=== PATIENT | female | born 1965 | race Caucasian/White ===

== ENCOUNTER 2023-02-18 16:25 | Observation (INO) ==
[2023-02-18 17:35] LABS: BASOPHILS # (AUTO) 0.1 K/uL (0-0.2); BASOPHILS % (AUTO) 1.3 % (0.0-3.0); EOSINOPHILS # (AUTO) 0.2 K/ul (0.0-0.7); EOSINOPHILS % (AUTO) 2.9 % (0.0-7.0); HEMATOCRIT 30.7 % (37.0-47.0); HEMOGLOBIN 9.9 g/dl (12.0-16.0); IMMATURE GRANULOCYTE % (AUTO) 0.1 % (0.0-5.0); LYMPHOCYTES # (AUTO) 2.3 K/uL (0.60-3.4); LYMPHOCYTES % (AUTO) 32.7 (10.0-50.0); MEAN CORPUSCULAR HGB CONC 32.2 (31.8-35.4); MEAN CORPUSCULAR VOLUME 99.4 fl (81.0-99.0); MONOCYTES # (AUTO) 0.6 K/uL (0.4-2.0); NEUTROPHILS # (AUTO) 3.8 K/ul (2.0-6.9); PLATELET COUNT 214 10^3/uL (140-440); RDW COEFFICIENT OF VARIATION 13.6 % (11.6-14.8); RED BLOOD COUNT 3.09 10^6/ul (4.20-5.40); WHITE BLOOD COUNT 6.97 K/ul (4.6-10.2)
[2023-02-18 17:43] LABS: ALANINE AMINOTRANSFERASE 15.5 U/L (0-35); ALBUMIN 2.99 g/dL (3.5-5.0); ALKALINE PHOSPHATASE 79.3 U/L (53-141); ASPARTATE AMINO TRANSFERASE 23.2 U/L (14-36); BILIRUBIN,TOTAL 0.22 mg/dL (0.2-1.3); BLOOD UREA NITROGEN 7.1 mg/dL (7-17); CALCIUM 7.93 mg/dL (8.4-10.2); CARBON DIOXIDE 28.4 mmol/L (22-30.0); CHLORIDE 105.1 mmol/L (98-107); CREATININE 0.74 mg/dL (0.60-1.30); GLUCOSE 84.5 mg/dL (74-106); POTASSIUM 3.44 mmol/L (3.5-5.1); SODIUM 136.1 mmol/L (134.5-145); TOTAL PROTEIN 5.75 g/dL (6.3-8.2)
--- NOTE | 2023-02-18 17:55 | CT ---
EXAM: CHEST CT WITH INTRAVENOUS CONTRAST HISTORY: Chest pain TECHNIQUE: CT acquisition of the chest from the thoracic inlet to the upper abdomen following IV cont rast administration. 2-D coronal and sagittal reformatted images were obtained from the axial source images. IV Contrast: Administered. CT Dose Reduction Techniques Performed: Yes. COMPARISON: None. FINDINGS: Lines, Tubes, Devices: None. Lung Parenchyma and Airways: Central airways are patent without endobronchial lesion. No focal conso lidation or interstitial disease. Centrilobular emphysema. No suspicious pulmonary nodule. Pleural Space: No pleural effusion or thickening. No pneumothorax. Thoracic Inlet, Mediastinum, and Nayeli: Thyroid gland is normal. No lymphadenopathy. Heart, Vessels, and Pericardium: The main pulmonary artery is normal caliber. There is no central pu lmonary embolism. The thoracic aorta is not dilated. No aortic dissection. Calcification in the ao rta consistent with atherosclerosis. The heart chambers are not enlarged. There is no pericardial e ffusion or thickening. Bones and Soft Tissues: There is no fracture, lytic lesion, or blastic lesion. Chest wall soft tissu es are unremarkable. Upper Abdomen: The visualized portions of the liver, spleen, and adrenals are normal. IMPRESSION: 1. Centrilobular emphysema. 2. Atherosclerosis. 3. No aortic dissection. No central pulmonary artery embolism. 4. Otherwise unremarkable contrast enhanced CT scan of the chest. All CT scans are performed using dose optimization techniques as appropriate to the performed exam an d include at least one of the following: Automated exposure control, adjustment of the mA and/or kV according t o size, and the use of iterative reconstruction technique.
--- NOTE | 2023-02-18 17:59 | CT ---
EXAM: CT OF THE ABDOMEN AND PELVIS WITH IV CONTRAST. HISTORY: Abdominal pain. Femoral access 2 days ago for endarterectomy. PROCEDURE: After the intravenous injection of contrast contiguous axial CT images of the abdomen and pelvis were obtained with coronal and sagittal reformats. All CT scans are performed using dose opt imization techniques as appropriate to a performed exam including the following: Automated exposure c ontrol, Adjustment of the mA and/or kV according to patient size, Use of iterative reconstruction sarkis hnique. FINDINGS: The liver is normal in appearance. There are gallstones in the gallbladder. The gallbladd er is within normal limits in size. There is a 0.9 cm complex low attenuation lesion in the spleen. The pancreas and adrenal glands are normal in appearance. There are bilateral renal cysts. The abd ominal aorta is within normal limits in size. There extensive atherosclerotic calcifications in the abdominal aorta and bilateral iliac arteries. There is occlusion of the bilateral iliac arteries wit h collateral reconstitution at the level of the bilateral common femoral arteries. No hematoma. The visualized loops of bowel and appendix are normal in appearance. No free fluid or free air in the a bdomen or pelvis. The bladder is adequately filled. There is diffuse bladder wall thickening measur ing up to 0.8 cm. The uterus is surgically absent. There are degenerative changes in the spine. Impression: Occlusion of the bilateral iliac arteries with collateral reconstitution at the level of the bilateral common femoral arteries. Bladder wall thickening as described, suspicious for cystitis. The differential diagnosis includes n eoplasm. Cholelithiasis as described. Atherosclerotic vascular disease as described. 0.9 cm complex splenic lesion as described. Recommend non-emergent ultrasound for further evaluation . Bilateral renal cysts. Hysterectomy. Critical result: I personally discussed Impression #1 with the patient's ER physician (Dr. Alonso) on 02/18/2023 at 5:[address] scans are performed using dose optimization techniques as appropriate to the performed exam an d include at least one of the following: Automated exposure control, adjustment of the mA and/or kV according t o size, and the use of iterative reconstruction technique.
--- NOTE | 2023-02-18 18:00 | CT ---
EXAM: CTA HEAD WITH AND WITHOUT CONTRAST TECHNIQUE: CT Angiography of the head performed without and with IV contrast. 2-D and 3-D reconstru ctions were made. HISTORY: Severe headache. Endarterectomy 2 days ago. COMPARISON: CTA head 01/29/2023. FINDINGS: No acute intracranial hemorrhage. No CT evidence of acute ischemic infarction. Old infarcts with encephalomalacia in the frontal lobes bilaterally. Unchanged diminutive enhancement of the right internal carotid artery and complete nonenhancement of the left internal carotid artery. Reconstitution of the anterior circulation via collaterals. Widel y patent vertebral arteries and basilar artery. No acute large vessel occlusion demonstrated. No aneurysm or high flow vascular lesion identified. IMPRESSION: Redemonstrated diminutive enhancement of the right internal carotid artery and nonenhancement of the left internal carotid artery. Reconstitution of the anterior circulation via collaterals. No acute large vessel occlusion. No acute intracranial abnormality. All CT scans are performed using dose optimization techniques as appropriate to the performed exam an d include at least one of the following: Automated exposure control, adjustment of the mA and/or kV according t o size, and the use of iterative reconstruction technique.
--- NOTE | 2023-02-18 18:02 | CT ---
EXAM: CTA NECK WITHOUT AND WITH IV CONTRAST HISTORY: Carotid enterectomy 2 days ago, now worse headache COMPARISON: 01/29/2023 CTA TECHNIQUE: Axial CTA of the neck without and with with IV contrast. Sagittal, coronal and 3-D reform ats were obtained. FINDINGS: Right side: Mild proximal CCA atherosclerotic plaque is seen with minimal stenosis. There is reident ification of a prominent calcified atherosclerotic plaque at the CCA bifurcation and proximal ICA. O cclusion of the occlusion of the proximal 4 cm of the cervical ICA is again seen. Trace patency of t he cervical ICA is identified beginning at the level of C2-3 and extending through the more superior aspect of the cervical ICA. The cervical vertebral artery is patent, with mild stenosis proximally d ue to calcified atherosclerotic plaque. No CT evidence of interval carotid endarterectomy. Left side: Mild multifocal CCA stenosis is identified. There is prominent calcified atherosclerotic plaque of the CCA bifurcation and proximal ICA. Occlusion of the entire cervical ICA is again seen. There is a least moderate stenosis of the origin of the vertebral artery which is normal in course an d caliber more distally. No CT evidence of interval carotid endarterectomy. Nonvascular findings: Emphysematous changes are identified. Degenerative changes of the spine are se en. 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 Trace patency noted beginning at the level of C2 and extending more superiorly. Reidentification of complete occlusion of the left cervical ICA. Mild right and at least moderate left proximal vertebral artery stenosis. Similar findings compared to the prior exam. All CT scans are performed using dose optimization techniques as appropriate to the performed exam an d include at least one of the following: Automated exposure control, adjustment of the mA and/or kV according t o size, and the use of iterative reconstruction technique.
[2023-02-18] MEDS ORDERED: SODIUM CHLORIDE 1,000 ML IV STA (18:36)
[2023-02-18] MEDS ORDERED: REGLAN IVP ONE (18:37)
[2023-02-18] MEDS ORDERED: BENADRYL IVP ONE (18:37)
[2023-02-18] MEDS ORDERED: ACETAMINOPHEN 1,000 MG/100 ML BAG IV ONE (19:24)
[2023-02-18 20:00] LABS: BILIRUBIN,URINE Negative (NEGATIVE); CLARITY,URINE Slightly (CLEAR); COLOR,URINE Yellow (YELLOW); GLUCOSE, URINE (UA) Negative (NEGATIVE); KETONES,URINE Negative (NEGATIVE); LEUKOCYTE ESTERASE ,URINE 1+ (NEGATIVE); NITRITE,URINE Negative (NEGATIVE); PH,URINE 5.5 (5-9); PROTEIN,URINE Negative (NEGATIVE); URINE, BLOOD Trace-intact (NEGATIVE); UROBILINOGEN,URINE 0.2 (0.2)
[2023-02-18 20:02] LABS: BACTERIA,URINE 1+ (NOT PRESENT); URINE WBC, MICROSCOPIC 30-50 (0-2)
--- NOTE | 2023-02-18 20:15 | ED.PDOC ---
General ED Provider: Dr. ALEX TOBIAS DO Chief Complaint: Headache Stated Complaint: Patient is a 57 yo F ehre for 05/04 headaceh for 2 days duration Patietn arrives afebrile and vitally stable She is alert and oriented x4 CGS 15 She was discharged 2 days ago from [facility] after carotid and vertebral artery diagnositc angiogram No falls or injuries No provoking or palliaitng factors SHe smokes 1 PPD Patient speaking in full senteces on room air spo2 98% Patient stable Time Seen by Provider: 02/18/23 16:28 Information Source: Patient Primary Care Provider: GRISELDA PEGUERO Nursing and Triage Documentation Reviewed and Agree: Yes Review of Systems Review Of Systems Constitutional: Denies Chills or Malaise Eyes: Denies Blindness or Vision change Ears, Nose, Mouth, Throat: Denies Ear pain or Nose pain Respiratory: Denies Cough or Shortness of Breath Cardiac: Denies Chest pain, Lightheadedness or Palpitations GI: Denies Abdominal pain, Constipated or Diarrhea : Denies Burning, Dysuria, Discharge or Frequency Musculoskeletal: Denies Back pain or Muscle pain Skin: Denies Rash or Cyanosis Neurological: Reports Headache; Denies Anxiety or Depressed Endocrine: Reports No symptoms Hematologic/Lymphatic: Reports No symptoms All Other Systems: Reviewed and Negative [facility] Medical History (Updated 02/18/23 @ 19:27 by ALEX TOBIAS DO) CVA (cerebral vascular accident) I63.9 - Cerebral infarction, unspecified (ICD-10) Hypertension I10 - Essential (primary) hypertension (ICD-10) Social History Special wilfredo needs: No Agree to transfusion: No Adopted: No Caregiver/support person: Yes Household members: family Housing: house Lives independently: Yes Highest education level completed: 10th grade service: No Current occupational status: unemployed Current occupational exposures/hazards: No Pets and animals: Yes Leisure activites: other History of recent travel: No Current gender identity: female Seatbelt use: always Helmet use: Yes Drives intoxicated or rides with intoxicated test driver: No Water heater temperature set < 120 degrees: Yes Working smoke detector in home: Yes Fire extinguisher in home: Yes Carbon monoxide detector in home: No Firearms in home: Yes Firearms unloaded and locked: Yes Female Reproductive History Menstrual Hx Hysterectomy: Yes Hx Tubal Ligation: No Physical Exam Physical Exam Appearance: Reports Well-appearing, Well-nourished and Thin Ill-appearing: Not Applicable Pain Distress: Moderate Eyes: Reports SHELLEY, EOMI and Conjunctiva clear ENT: Reports Ears normal, Nose normal, Oropharynx normal and Other (poor dentition) Neck: Supple Respiratory: Reports Airway patent and Breath sounds clear; Denies Crackles or Rhonchi Cardiovascular: Reports RRR and Pulses normal GI/: Reports Soft and Nontender Musculoskeletal: Reports Normal strength and ROM intact Skin: Reports Warm, Dry and Other (Bandage to R femoral Left radial artery from catheter inserction site, well dressed clean dry and intact, mild adjacent eccymosis.) Neurological: Reports Sensation intact, Motor intact, Cranial nerves intact, Alert and Oriented; Denies Focal Deficit or CN Palsy Psychiatric: Reports Affect appropriate and Mood appropriate Critical Care Note Critical Care Note Total Critical Care Time (mins): 0 Course Course 02/18/23 17:20 02/18/23 17:20 Orders, Labs, Meds: Lab Review 02/18/23 02/18/23 02/18/23 17:20 17:39 19:50 WBC 6.97 RBC 3.09 L Hgb 9.9 L Hct 30.7 L MCV 99.4 H MCH 32.0 H MCHC 32.2 RDW Coeff of Cortney 13.6 Plt Count 214 Immature Gran % (Auto) 0.1 Neut % (Auto) 55.0 Lymph % (Auto) 32.7 Collin % (Auto) 8.0 Eos % (Auto) 2.9 Baso % (Auto) 1.3 Neut # (Auto) 3.8 Lymph # (Auto) 2.3 Collin # (Auto) 0.6 Eos # (Auto) 0.2 Baso # (Auto) 0.1 Immature Gran # (Auto) 0.0 Sodium 136.1 Potassium 3.44 L Chloride 105.1 Carbon Dioxide 28.4 Anion Gap 6.04 BUN 7.1 Creatinine 0.74 Estimated GFR (MDRD) 80.00 BUN/Creatinine Ratio 9.59 Glucose 84.5 Calcium 7.93 L Total Bilirubin 0.22 AST 23.2 ALT 15.5 Alkaline Phosphatase 79.3 Troponin I < 0.012 Total Protein 5.75 L Albumin 2.99 L Globulin 2.76 Albumin/Globulin Ratio 1.08 Lipase 54.3 Urine Color Yellow Urine Clarity Slightly Urine pH 5.5 Ur Specific Troy <=1.005 Urine Protein Negative Urine Glucose (UA) Negative Urine Ketones Negative Urine Blood Trace-intact H Urine Nitrite Negative Urine Bilirubin Negative Urine Urobilinogen 0.2 Ur Leukocyte Esterase 1+ H Urine Microscopic RBC 10-20 Urine Microscopic WBC 30-50 Ur Squamous Epith Cells 5-10 Urine Bacteria 1+ Blood Type O POSITIVE O POSITIVE Antibody Screen Negative Orders Category Date Time Status OBSERVATION [PLACE PATIENT OBSERVATION] .[facility] 02/18/23 19:27 Active (MONITORED BED) NPO REMINDER: IMAGING ONCE CARE 02/18/23 16:29 Completed NPO REMINDER: IMAGING ONCE CARE 02/18/23 16:47 Completed TELEMETRY MONITORING TELE CARE 02/18/23 19:27 Active CBC W/ AUTO DIFF Stat LAB 02/18/23 17:20 Completed CMP [COMPREHENSIVE METABOLIC PANEL] Stat LAB 02/18/23 17:20 Completed LIPASE Stat LAB 02/18/23 17:20 Completed TROPONIN I Stat LAB 02/18/23 17:20 Completed TYPE AND SCREEN Stat LAB 02/18/23 17:20 Completed UA [URINALYSIS C & S IF INDICATED] Stat LAB 02/18/23 19:50 Completed URINE CULTURE Stat LAB 02/18/23 19:50 Received Acetaminophen Meds 02/18/23 19:24 Discontinued 1,000 mg in 100 ml IV ONCE Diphenhydramine Inj [Benadryl] Meds 02/18/23 18:37 Discontinued 25 mg IVP ONCE ONE Metoclopramide HCl [Reglan] Meds 02/18/23 18:37 Discontinued 10 mg IVP ONCE ONE Sodium Chloride 0.9% [Sodium Chloride] 1,000 ml Meds 02/18/23 18:36 Discontin u[address] IV B[address]US [address] ABDOMEN/PELVIS W CONTRAST Stat RADS 02/18/23 16:[address] CHEST W/CONTRAST Stat RADS 02/18/23 16:47 Completed CTA ANGIO HEAD Stat RADS 02/18/23 16:28 Completed CTA ANGIO NECK Stat RADS 02/18/23 16:28 Completed Medications Discontinued Medications Generic Name Dose Route Start Last Admin Trade Name Freq PRN Reason Stop Dose Admin Diphenhydramine HCl 25 mg 02/18/23 18:37 02/18/23 18:54 Diphenhydramine Inj 50 Mg/Ml Vial IVP 02/18/23 18:38 25 mg ONCE ONE Administration Sodium Chloride 1,000 mls @ 1,000 mls/hr 02/18/23 18:36 02/18/23 18:54 Sodium Chloride IV 02/18/23 19:35 1,000 mls/hr BOLUS STA Administration Acetaminophen 1,000 mg in 100 mls @ 400 mls/hr 02/18/23 19:24 02/18/23 19:40 Acetaminophen IV 02/18/23 19:38 400 mls/hr ONCE ONE Administration Metoclopramide HCl 10 mg 02/18/23 18:37 02/18/23 18:55 Metoclopramide Hcl 10 Mg/2 Ml IVP 02/18/23 18:38 10 mg ONCE ONE Administration Vital Signs: Temp Pulse Resp BP Pulse Ox 02/18/23 16:29 98.1 F 91 20 125/69 98 MDM: Patient is a 57 yo F here for headache Patient arrives afebrile and vitally stable Exam reassuring 3+ labs and 3+ images reviewed by me Consult: Vascular surgery Team [facility]: I spoke to OCTAVIO Marcum who corresponded with her attending Dr. Matson - they perfomred carotid angiogram 2 days ago no interventions I read Imaging reports to her on consult- they are aware todays findings match previous and was why they had referral for testing - no plan for intervention now They request we admit perform MRI for headache, rule out any other problems and manage medically, if there are complications they will assist in transfer Patient amenable to plan I read CT reports to [facility] surgery team verbatim. OCTAVIO marcum was great and gave me her phone number for any questions: [phone] Patient and I discussed her findings symptoms and risks benefits and alter natives, she prefers admission here for MRI, declines transfer to [facility] WDX: Headache, carotid and vertebral artery stenosis, tobacco use discomfort acute on chronic moderate complexity DDX: I considered ICH, sepsis, overdose but these were not found SDOH: Patient underinsured with limited resources will improve with smoking cessation Patient placed on observation for am head MRI and likely discharge Her pain improved with Migraine cocktail Discharge Plan Discharge Patient Disposition: PLACED OBSERVATION Discharge Problem: Carotid artery stenosis, Vertebral artery stenosis, Headache, Iliac artery occlusion, bilateral Did you review [place] [employer] for ALL controlled substances?: Not Applicable ED Provider: ALEX TOBIAS Physician Progress Note: []
[2023-02-18] MEDS ORDERED: TYLENOL PO PRN (20:36)
[2023-02-18] MEDS ORDERED: ZOFRAN 4 MG/2 ML IVP PRN (20:36)
[2023-02-18 21:11] VITALS: BMI 16.9
[2023-02-18] MEDS ORDERED: BUSPAR PO PRN (21:36)
[2023-02-18] MEDS ORDERED: ASPIRIN EC PO SCH (22:00)
[2023-02-18] MEDS ORDERED: LIPITOR PO SCH (22:00)
[2023-02-18] MEDS ORDERED: LEXAPRO PO SCH (22:00)
[2023-02-18] MEDS ORDERED: PRILOSEC PO SCH (22:00)
[2023-02-18] MEDS: NICODERM 21 MG TD SCH (22:27)
[2023-02-18] MEDS: THIAMINE PO SCH (22:28)
[2023-02-19 05:39] LABS: BASOPHILS # (AUTO) 0.1 K/uL (0-0.2); BASOPHILS % (AUTO) 1.3 % (0.0-3.0); EOSINOPHILS # (AUTO) 0.3 K/ul (0.0-0.7); EOSINOPHILS % (AUTO) 4.7 % (0.0-7.0); HEMATOCRIT 31.9 % (37.0-47.0); HEMOGLOBIN 9.8 g/dl (12.0-16.0); IMMATURE GRANULOCYTE % (AUTO) 0.2 % (0.0-5.0); LYMPHOCYTES # (AUTO) 2.2 K/uL (0.60-3.4); LYMPHOCYTES % (AUTO) 40.6 (10.0-50.0); MEAN CORPUSCULAR HEMOGLOBIN 30.9 pg (27.0-31.0); MEAN CORPUSCULAR HGB CONC 30.7 (31.8-35.4); MEAN CORPUSCULAR VOLUME 100.6 fl (81.0-99.0); MONOCYTES # (AUTO) 0.5 K/uL (0.4-2.0); MONOCYTES % (AUTO) 8.7 (0-10); NEUTROPHILS # (AUTO) 2.4 K/ul (2.0-6.9); NEUTROPHILS % (AUTO) 44.5 % (42.2-75.2); PLATELET COUNT 205 10^3/uL (140-440); RDW COEFFICIENT OF VARIATION 13.8 % (11.6-14.8); RED BLOOD COUNT 3.17 10^6/ul (4.20-5.40); WHITE BLOOD COUNT 5.49 K/ul (4.6-10.2)
[2023-02-19 05:56] LABS: ALANINE AMINOTRANSFERASE 14.7 U/L (0-35); ALBUMIN 3.03 g/dL (3.5-5.0); ALKALINE PHOSPHATASE 66.3 U/L (53-141); BILIRUBIN,TOTAL 0.51 mg/dL (0.2-1.3); BLOOD UREA NITROGEN 5.6 mg/dL (7-17); CALCIUM 8.15 mg/dL (8.4-10.2); CARBON DIOXIDE 24.8 mmol/L (22-30.0); CHLORIDE 113.2 mmol/L (98-107); CREATININE 0.7 mg/dL (0.60-1.30); GLUCOSE 76.6 mg/dL (74-106); POTASSIUM 3.7 mmol/L (3.5-5.1); SODIUM 140.2 mmol/L (134.5-145); TOTAL PROTEIN 5.74 g/dL (6.3-8.2)
[2023-02-19] MEDS ORDERED: ASPIRIN EC PO SCH (08:30)
[2023-02-19] MEDS: NICODERM 21 MG TD SCH (08:46)
[2023-02-19] MEDS: THIAMINE PO SCH (08:46)
[2023-02-19 10:16] VITALS: RESP 16
--- NOTE | 2023-02-19 12:17 | PCM.SS ---
Provider Provider: OLIVIER LÓPEZ PA-C, [facility] Admission Date Admission Date: 02/18/23 Discharge Date Discharge Date: 02/19/23 Primary Care Physician Primary Care Physician: GRISELDA PEGUERO Chief Complaint Reason For Visit: INTRACTABLE HEADACHE History of Present Illness History of Present Illness: Admitted 02/18/23 20:00, this 57 year old /WHITE/F with pmhx of PAD, hypertension, depression, anxiety who presented to ER with headache. She had a procedure done 2 days prior which sounded like a carotid endarterctomy. However after ERP spoke with her vascular team she had underwent a diagnostic carotid and vertebral artery angiogram, no intervention. Pt states on she began having a significant headache. She does not typically have headaches so this concerned her. She had several CT scans in ER including CTA H&N, CT of c/a/p without any acute findings. Her arterial occlusions were redemonstrated and excepted by the vascular team. They recommended observation overnight and a MRI brain today. On my evaluation, pt denies headache. She is feeling much better. Denies any focal deficits. She has a f/u with vascular scheduled for next week. [facility] Medical History CVA (cerebral vascular accident) I63.9 - Cerebral infarction, unspecified (ICD-10) Hypertension I10 - Essential (primary) hypertension (ICD-10) Social History Smoking and tobacco status: Current every day smoker Tobacco type: cigarettes Special wilfredo needs: No Agree to transfusion: No Adopted: No Caregiver/support person: Yes Household members: family Housing: house Lives independently: Yes Highest education level completed: 10th grade service: No Current occupational status: unemployed Current occupational exposures/hazards: No Pets and animals: Yes Leisure activites: other History of recent travel: No Current gender identity: female Seatbelt use: always Helmet use: Yes Drives intoxicated or rides with intoxicated certified driver examiner: No Water heater temperature set < 120 degrees: Yes Working smoke detector in home: Yes Fire extinguisher in home: Yes Carbon monoxide detector in home: No Firearms in home: Yes Firearms unloaded and locked: Yes Medications Mecications: Medications at Discharge (Home Meds & RX) aspirin 81 mg tablet,delayed release (Adult Low Dose Aspirin) 81 mg PO QDAY 09/16/20 blood pressure test kit-medium #1 ea 09/16/20 walker #1 ea 06/23/21 omeprazole 40 mg capsule,delayed release 40 mg PO QDAY #90 caps 04/30/22 thiamine HCl (vitamin B1) 100 mg tablet 100 mg PO QDAY 90 days #90 tabs 07/17/22 atorvastatin 80 mg tablet See Rx Instructions .Route .COMPLEX #30 ea 11/02/22 buspirone 7.5 mg tablet See Rx Instructions .Route .COMPLEX #180 tabs 11/02/22 lisinopril 10 mg tablet See Rx Instructions .Route .COMPLEX #90 tabs 11/02/22 metoprolol tartrate 25 mg tablet See Rx Instructions .Route .COMPLEX #60 tabs 11/02/22 escitalopram oxalate 20 mg tablet See Rx Instructions .Route .COMPLEX #30 tabs 01/18/23 pentoxifylline 400 mg tablet,extended release See Rx Instructions .Route .COMPLEX #90 tabs 01/18/23 Allergies Allergies Allergy/AdvReac Type Severity Reaction Status Date / Time Penicillins Allergy Severe Rash Verified 07/13/22 13:24 spinach Allergy Severe sick to Verified 07/13/22 13:24 stomach nitrofurantoin AdvReac Mild Rash Verified 07/13/22 13:24 [From Macrodantin] Review of Systems Constitutional: Denies Fever, Fatigue or Weakness Head: Reports Normocephalic and Atraumatic Eyes: Denies Vision Changes Throat: Denies Sore Throat or Difficulty Swallowing Cardiovascular: Denies Chest pain, Chest Pressure or Edema Respiratory: Denies Cough or Shortness of air Gastrointestinal: Denies Nausea, Vomiting, Diarrhea or Abdominal pain Hematology: Reports Anemia Neurological: Reports Headache (resolved now); Denies Dizziness, Syncope or Seizure Physical Examination Appearance: Positive No Apparent Distress, Alert and Oriented x3 and Thin Head: Positive Normocephalic and Atraumatic Eyes: Positive SHELLEY Neck: Positive Supple and Non-Tender Heart: Positive RRR Respiratory: Positive Breath Sounds Clear, Bilaterally GI/: Positive Soft, Nontender, Bowel sounds normal and No Distention Extremities: Negative Edema Neurological: Positive Cranial nerves intact, Normal Gait, Alert and Oriented; Negative Focal Deficit Psychiatric: Positive Normal Judgement, Normal Insight, Affect Appropriate and Mood Appropriate Additional Findings: Skin: Access sites from angiograms on candis femorals and left wrist clean, intact, dry dressings. Mild amount of ecchymosis noted surrounding areas. No cellulitis noted. Vital Signs (Last 4 Hours) Vital Signs Last 4 Hours: Vital Signs: Last 4 Hours 02/19/23 10:00 Temperature 97 F L Temperature Source Oral Pulse Rate 65 Respiratory Rate 16 Blood Pressure 116/64 Blood Pressure Mean 81 Blood Pressure Location Right Arm Blood Pressure Position Supine O2 Sat by Pulse Oximetry 100 Oxygen Delivery Method Room Air Labs This Visit Labs This Visit: Labs This Visit 02/18/23 02/18/23 02/18/23 17:20 17:39 19:50 WBC 6.97 RBC 3.09 L Hgb 9.9 L Hct 30.7 L MCV 99.4 H MCH 32.0 H MCHC 32.2 RDW Coeff of Cortney 13.6 Plt Count 214 Immature Gran % (Auto) 0.1 Neut % (Auto) 55.0 Lymph % (Auto) 32.7 Carver % (Auto) 8.0 Eos % (Auto) 2.9 Baso % (Auto) 1.3 Neut # (Auto) 3.8 Lymph # (Auto) 2.3 Carver # (Auto) 0.6 Eos # (Auto) 0.2 Baso # (Auto) 0.1 Immature Gran # (Auto) 0.0 Sodium 136.1 Potassium 3.44 L Chloride 105.1 Carbon Dioxide 28.4 Anion Gap 6.04 BUN 7.1 Creatinine 0.74 Estimated GFR (MDRD) 80.00 BUN/Creatinine Ratio 9.59 Glucose 84.5 Calcium 7.93 L Total Bilirubin 0.22 AST 23.2 ALT 15.5 Alkaline Phosphatase 79.3 Troponin I < 0.012 Total Protein 5.75 L Albumin 2.99 L Globulin 2.76 Albumin/Globulin Ratio 1.08 Lipase 54.3 Urine Color Yellow Urine Clarity Slightly Urine pH 5.5 Ur Specific [place] <=1.005 Urine Protein Negative Urine Glucose (UA) Negative Urine Ketones Negative Urine Blood Trace-intact H Urine Nitrite Negative Urine Bilirubin Negative Urine Urobilinogen 0.2 Ur Leukocyte Esterase 1+ H Urine Microscopic RBC 10-20 Urine Microscopic WBC 30-50 Ur Squamous Epith Cells 5-10 Urine Bacteria 1+ Blood Type O POSITIVE O POSITIVE Antibody Screen Negative 02/19/23 05:20 WBC 5.49 RBC 3.17 L Hgb 9.8 L Hct 31.9 L MCV 100.6 H MCH 30.9 MCHC 30.7 L RDW Coeff of [place] 13.8 Plt Count 205 Immature Gran % (Auto) 0.2 Neut % (Auto) 44.5 Lymph % (Auto) 40.6 Carver % (Auto) 8.7 Eos % (Auto) 4.7 Baso % (Auto) 1.3 Neut # (Auto) 2.4 Lymph # (Auto) 2.2 Carver # (Auto) 0.5 Eos # (Auto) 0.3 Baso # (Auto) 0.1 Immature Gran # (Auto) 0.0 Sodium 140.2 Potassium 3.70 Chloride 113.2 H Carbon Dioxide 24.8 Anion Gap 5.90 BUN 5.6 L Creatinine 0.70 Estimated GFR (MDRD) 86.00 BUN/Creatinine Ratio 8.00 Glucose 76.6 Calcium 8.15 L Total Bilirubin 0.51 AST 23.0 ALT 14.7 Alkaline Phosphatase 66.3 Troponin I Total Protein 5.74 L Albumin 3.03 L Globulin 2.71 Albumin/Globulin Ratio 1.11 Lipase Urine Color Urine Clarity Urine pH Ur Specific [place] Urine Protein Urine Glucose (UA) Urine Ketones Urine Blood Urine Nitrite Urine Bilirubin Urine Urobilinogen Ur Leukocyte Esterase Urine Microscopic RBC Urine Microscopic WBC Ur Squamous Epith Cells Urine Bacteria Blood Type Antibody Screen Microbiology This Visit 02/18/23 19:50 Urine,Clean Catch Urine Culture - Preliminary Imaging Imaging: EXAM: CTA NECK WITHOUT AND WITH IV CONTRAST HISTORY: Carotid enterectomy 2 days ago, now worse headache COMPARISON: 01/29/2023 CTA TECHNIQUE: Axial CTA of the neck without and with with IV contrast. Sagittal, coronal and 3-D reformats were obtained. FINDINGS: Right side: Mild proximal CCA atherosclerotic plaque is seen with minimal stenosis. There is reidentification of a prominent calcified atherosclerotic plaque at the CCA bifurcation and proximal ICA. Occlusion of the occlusion of the proximal 4 cm of the cervical ICA is again seen. Trace patency of the cervical ICA is identified beginning at the level of C2-3 and extending through the more superior aspect of the cervical ICA. The cervical vertebral artery is patent, with mild stenosis proximally due to calcified atherosclerotic plaque. No CT evidence of interval carotid endarterectomy. Left side: Mild multifocal CCA stenosis is identified. There is prominent calcified atherosclerotic plaque of the CCA bifurcation and proximal ICA. Occlusion of the entire cervical ICA is again seen. There is a least moderate stenosis of the origin of the vertebral artery which is normal in course and caliber more distally. No CT evidence of interval carotid endarterectomy. Nonvascular findings: Emphysematous changes are identified. Degenerative changes of the spine are seen. 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 Trace patency noted beginning at the level of C2 and extending more superiorly. Reidentification of complete occlusion of the left cervical ICA. Mild right and at least moderate left proximal vertebral artery stenosis. Similar findings compared to the prior exam. EXAM: CTA HEAD WITH AND WITHOUT CONTRAST TECHNIQUE: CT Angiography of the head performed without and with IV contrast. 2-D and 3-D reconstructions were made. HISTORY: Severe headache. Endarterectomy 2 days ago. COMPARISON: CTA head 01/29/2023. FINDINGS: No acute intracranial hemorrhage. No CT evidence of acute ischemic infarction. Old infarcts with encephalomalacia in the frontal lobes bilaterally. Unchanged diminutive enhancement of the right internal carotid artery and comple te nonenhancement of the left internal carotid artery. Reconstitution of the anterior circulation via collaterals. Widely patent vertebral arteries and basilar artery. No acute large vessel occlusion demonstrated. No aneurysm or high flow vascular lesion identified. IMPRESSION: Redemonstrated diminutive enhancement of the right internal carotid artery and nonenhancement of the left internal carotid artery. Reconstitution of the anterior circulation via collaterals. No acute large vessel occlusion. No acute intracranial abnormality. EXAM: CHEST CT WITH INTRAVENOUS CONTRAST HISTORY: Chest pain TECHNIQUE: CT acquisition of the chest from the thoracic inlet to the upper abdomen following IV contrast administration. 2-D coronal and sagittal reformatted images were obtained from the axial source images. IV Contrast: Administered. CT Dose Reduction Techniques Performed: Yes. COMPARISON: None. FINDINGS: Lines, Tubes, Devices: None. Lung Parenchyma and Airways: Central airways are patent without endobronchial lesion. No focal consolidation or interstitial disease. Centrilobular emphysema. No suspicious pulmonary nodule. Pleural Space: No pleural effusion or thickening. No pneumothorax. Thoracic Inlet, Mediastinum, and Nayeli: Thyroid gland is normal. No lymphadenopathy. Heart, Vessels, and Pericardium: The main pulmonary artery is normal caliber. There is no central pulmonary embolism. The thoracic aorta is not dilated. No aortic dissection. Calcification in the aorta consistent with atherosclerosis. The heart chambers are not enlarged. There is no pericardial effusion or thickening. Bones and Soft Tissues: There is no fracture, lytic lesion, or blastic lesion. Chest wall soft tissues are unremarkable. Upper Abdomen: The visualized portions of the liver, spleen, and adrenals are normal. IMPRESSION: 1. Centrilobular emphysema. 2. Atherosclerosis. 3. No aortic dissection. No central pulmonary artery embolism. 4. Otherwise unremarkable contrast enhanced CT scan of the chest. EXAM: CT OF THE ABDOMEN AND PELVIS WITH IV CONTRAST. HISTORY: Abdominal pain. Femoral access 2 days ago for endarterectomy. PROCEDURE: After the intravenous injection of contrast contiguous axial CT images of the abdomen and pelvis were obtained with coronal and sagittal reformats. All CT scans are performed using dose optimization techniques as appropriate to a performed exam including the following: Automated exposure control, Adjustment of the mA and/or kV according to patient size, Use of iterative reconstruction technique. FINDINGS: The liver is normal in appearance. There are gallstones in the gallbladder. The gallbladder is within normal limits in size. There is a 0.9 cm complex low attenuation lesion in the spleen. The pancreas and adrenal glands are normal in appearance. There are bilateral renal cysts. The abdominal aorta is within normal limits in size. There extensive atherosclerotic calcifications in the abdominal aorta and bilateral iliac arteries. There is occlusion of the bilateral iliac arteries with collateral reconstitution at the level of the bilateral common femoral arteries. No hematoma. The visualized loops of bowel and appendix are normal in appearance. No free fluid or free air in the abdomen or pelvis. The bladder is adequately filled. There is diffuse bladder wall thickening measuring up to 0.8 cm. The uterus is surgically absent. There are degenerative changes in the spine. Impression: Occlusion of the bilateral iliac arteries with collateral reconstitution at the level of the bilateral common femoral arteries. Bladder wall thickening as described, suspicious for cystitis. The differential diagnosis includes neoplasm. Cholelithiasis as described. Atherosclerotic vascular disease as described. 0.9 cm complex splenic lesion as described. Recommend non-emergent ultrasound for further evaluation. Bilateral renal cysts. Hysterectomy. Critical result: I personally discussed Impression #1 with the patient's ER physician (Dr. Alonso) on 02/18/2023 at 5:53 p.m. Review Review Statement: I have independently reviewed and interpreted the labs/EKGs/imaging that were ordered by the ER provider. I have reviewed all outside records that are available currently in our EMR including imaging/notes/labs from previous visits. Plan Additional Plannin. Headache following vascular procedure - Resolved now after migraine cocktail. Vascular recommended MRI brain to r/o any acute abnormality, then can be discharged. They will f/u with her next week as planned. Pt headache free as of this morning. No focal deficits. Case discussed with ED Physician, Dr. Alonso. Advanced Care Plannin minutes spent discussing advance care planning. FULL CODE Smoking Cessation: 3 minutes spent discussing smoking cessation. Admit to: Obs Discussed Plan of Care with Dr. Frieda Naidu. Patient's MRI showed a suspicion for a tiny focus of embolic cerebral infarction seen within the right parietal lobe. Patient states she thinks that this is where her previous stroke was. However she seems to be a very unreliable historian. She states that she has been taking aspirin and Plavix for at least a year. Pharmacy states that she just filled this within the last couple weeks. Spoke with the vascular ACCOUNTS PAYABLE ASSOCIATE Nahomi who states that the Plavix is a new medication for her as well. We will leave her on aspirin and Plavix at this time. Patient has no deficits and is feeling much better upon reevaluation again today. Discussed importance of medication compliance. ACCOUNTS PAYABLE ASSOCIATE Nahomi states that they will see her probably on March 09 but they will be calling her with an appointment time. PCP apt scheduled for Wednesday as well. Of note, UA suspect for UTI. Pt doesn't have any symptoms. Rec f/u at pcp for urine culture results. Discharge diagnosis: 1. Small right parietal cerebral infarction 2. PAD with several occlusions 3. COPD, pt denies previous diagnosis, shown on imaging Review With Patient Reviewed with Patient and Family: Patient and family have been counseled on condition and care plan and have no immediate questions. I have personally discussed and reviewed the patient's visit/current labs/imaging/decision making with Dr. Frieda Naidu, my supervising attending. Total number of minutes spent with patient [ 85 ] min. More than 50% of the time spent with this patient was devoted to counseling and coordination of care. Time of Admission:02/18/23 20:00 Time of Discharge: 02/19/23 15:15 Discharge Plan Discharge Discharge Orders: Discharge Patient (ONCE); Ordered 02/19/23 Ordered By: OLIVIER COWSERT Activity Restrictions/Additional Instructions: Discharge to home DX: Headache, right parietal CVA Diet: Heart healthy Activity: As tolerated Continue aspirin and plavix F/U with vascular YOU HAVE A FOLLOW UP APPOINTMENT WITH [facility] ON WednesdayJanuary AT 10:15AM. SHOULD YOU HAVE ANY QUESTIONS OR NEED TO RESCHEDULE YOU CAN CONTACT THEIR OFFICE AT [phone]. Instructions: Acute Headache (DC), Ischemic Stroke (DC) Care Plan Goals: Problem: Alteration in Comfort/Pain Goal: Manage pain at a tolerable level Instructions: Monitor character, location and intensity Express expectations of pain relief Pain medication as ordered Position for maximal comfort Pain management prior to activities Patient Disposition: HOME SELF-CARE Prescriptions: Continued omeprazole 40 mg capsule,delayed release(DR/EC) 40 mg PO QDAY Qty: 90 0RF thiamine HCl (vitamin B1) 100 mg tablet 100 mg PO QDAY 90 Days Qty: 90 3RF atorvastatin 80 mg tablet See Rx Instructions .ROUTE .COMPLEX Qty: 30 2RF Dose Instruction: TAKE ONE TABLET DAILY NO FURTHER REFILLS UNTIL APPOINTMENT IS SCHEDULED IN CLINIC Rx Instructions: TAKE ONE TABLET DAILY NO FURTHER REFILLS UNTIL APPOINTMENT IS SCHEDULED IN CLINIC buspirone 7.5 mg tablet See Rx Instructions .ROUTE .COMPLEX Qty: 180 2RF Dose Instruction: TAKE ONE TABLET THREE TIMES DAILY NEEDED FOR ANXIETY NO FURTHER REFILLS UNTIL APPOINTMENT IS SCHEDULED IN CLINIC Rx Instructions: TAKE ONE TABLET THREE TIMES DAILY NEEDED FOR ANXIETY NO FURTHER REFILLS UNTIL APPOINTMENT IS SCHEDULED IN CLINIC lisinopril 10 mg tablet See Rx Instructions .ROUTE .COMPLEX Qty: 90 2RF Dose Instruction: TAKE ONE TABLET DAILY NO FURTHER REFILLS UNTIL APPOINTMENT IS SCHEDULED IN CLINIC Rx Instructions: TAKE ONE TABLET DAILY NO FURTHER REFILLS UNTIL APPOINTMENT IS SCHEDULED IN CLINIC metoprolol tartrate 25 mg tablet See Rx Instructions .ROUTE .COMPLEX Qty: 60 2RF Dose Instruction: TAKE ONE TABLET TWICE DAILY GENERIC FOR LOPRESSOR NO FURTHER REFILLS UNTIL APPOINTMENT IS SCHEDULED IN CLINIC Rx Instructions: TAKE ONE TABLET TWICE DAILY GENERIC FOR LOPRESSOR NO FURTHER REFILLS UNTIL APPOINTMENT IS SCHEDULED IN CLINIC escitalopram oxalate 20 mg tablet See Rx Instructions .ROUTE .COMPLEX Qty: 30 2RF Dose Instruction: TAKE ONE TABLET DAILY GENERIC FOR LEXAPRO Rx Instructions: TAKE ONE TABLET DAILY GENERIC FOR LEXAPRO pentoxifylline 400 mg tablet extended release See Rx Instructions .ROUTE .COMPLEX Qty: 90 0RF Dose Instruction: TAKE ONE TABLET THREE TIMES DAILY MUST TAKE WITH FOOD NO FURTHER REFILLS UNTIL APPOINTMENT IS SCHEDULED IN CLINIC Rx Instructions: TAKE ONE TABLET THREE TIMES DAILY MUST TAKE WITH FOOD NO FURTHER REFILLS UNTIL APPOINTMENT IS SCHEDULED IN CLINIC clopidogrel [Plavix] 75 mg tablet 75 mg PO DAILY aspirin [Adult Low Dose Aspirin] 81 mg tablet,delayed release (DR/EC) 81 mg PO QDAY No Action (DME) blood pressure test kit-medium Kit See Rx Instructions .ROUTE .MEDSUPPLY Qty: 1 0RF Rx Instructions: As directed (JULIÁN) ladi [facility] [place] See Rx Instructions .ROUTE Qty: 1 0RF Rx Instructions: As directed Did you review [place] ACCESS SERVICE REPRESENTATIVE for ALL controlled substances?: Not Applicable Discussed opioids are addictive and Narcan is available by prescription or from pharmacy.: No Condition: Stable
[2023-02-19 14:19] VITALS: BP 135/66; PULSE 67; TEMP 98.1
--- NOTE | 2023-02-19 14:22 | MRI ---
EXAM: MRI OF THE BRAIN WITHOUT CONTRAST HISTORY: headache TECHNIQUE: Multiplanar imaging of the brain was performed using T1, T2, inversion recovery, diffusio n, T2 gradient sequences. Comparison none. FINDINGS: The suspicion for a tiny focus of restricted diffusion seen in the right parietal lobe ita suring approximately 2.8 mm on axial image number 19. There is no other restricted diffusion. The l ateral ventricles and cortical sulci are prominent secondary to atrophy. Numerous T2 high signal foc i are seen throughout the supratentorial white matter. The basal cisterns are patent. Normal flow v oids are identified within the basal cisterns. The seventh and eighth cranial nerve complexes are no rmal. Normal flow signal is identified within the dural venous sinuses. No acute hemorrhages are se en. There is no mass effect. There are no extraaxial collections. The craniocervical junction and midline structures. The soft tissues of the skull base and nasophary nx appear normal. The paranasal sinuses and mastoid air cells are clear. IMPRESSION: There is suspicion for a a tiny focus of embolic cerebral infarction seen within the rig ht parietal lobe. Moderate to severe chronic small vessel ischemic changes seen throughout the supratentorial white mat ter. Bowel result: The findings were communicated to the patients nurse at 2:16 p.m. 02/19/2023.
[2023-02-19] MEDS ORDERED: PRILOSEC PO SCH (21:00)
== END 2023-02-19 17:35 | disposition home or self-care (01) ==
LOC: ED 16:25 → MEDSURG B 16:25
PROVIDERS: ADMIT Hospitalist; ATTEND Physician Assistant